=== PATIENT | female | born 1955 | race Caucasian/White ===

== ENCOUNTER 2018-07-16 19:04 | Emergency (ER) | payer OTHER, MEDICAID ==
[~2018-07-16] VITALS: Ht 172.7 cm; Wt 94.3 kg
[~2018-07-16 19:04] MED LIST: ATOR10TA52; GABA100C9 PO; METH500T6; OMEP20CA74; TIOTCAP
[2018-07-16 20:19] LABS: Basophils # (auto) 0.1 uL; Eosinophils # (auto) 0.1 uL; Lymphocytes # (auto) 3.2 uL; Nucleated Red Blood Cells % 0.1 %; White Blood Cell 8.2 10^3/uL (4.4-10.8)
[2018-07-16 20:21] LABS: Basophils % (auto) 0.9 % (0.0-2.0); Eosinophils % (auto) 1.1 % (0.0-7.0); Hematocrit 38.7 % (36.0-46.0); Hemoglobin 12.3 g/dL (12.2-16.2); Lymphocytes % (auto) 39.6 % (10.0-50.0); Mean Corpuscular Hemoglobin 23.9 pg (28.0-32.0); Mean Corpuscular Hgb Conc. 31.8 g/dL (32.0-36.0); Mean Corpuscular Volume 75.4 fL (80.0-100.0); Monocytes # (auto) 0.8 uL; Monocytes % (auto) 10.1 % (0.0-12.0); Neutrophils # (auto) 3.9 uL; Neutrophils % (auto) 48.3 % (37.0-80.0); Platelet Count (auto) 298 10^3/uL (140-450); Red Blood Cells 5.14 10^6/uL (4.0-5.20); Red Cell Distribution Width 19.9 % (11.8-14.3)
[2018-07-16 20:42] LABS: Albumin 3.7 g/dL (3.4-5.0); Calcium 8.9 mg/dL (8.5-10.1)
[2018-07-16 20:46] LABS: Bilirubin, Total 0.5 mg/dL (0.2-1.0); Total Protein 7.7 g/dL (6.4-8.2)
[2018-07-16 21:16] LABS: INR 1.37 (0.9-1.15); Prothrombin Time 13.6 sec (9.27-12.13)
[2018-07-16 21:17] LABS: Partial Thromboplastin Time 30.7 sec (23.78-33.04)
[2018-07-17 00:30] VITALS: BP 124/86
== END 2018-07-17 03:19 | disposition home or self-care (01) ==
LOC: ER 19:10
DX: M70.31 Other bursitis of elbow, right elbow (principal); I48.91 Unspecified atrial fibrillation; I50.9 Heart failure, unspecified; Z79.899 Other long term (current) drug therapy
CPT/HCPCS: 36415; 71046; 73200; 80053; 84550; 85025; 85610; 85730

== ENCOUNTER 2021-04-28 13:46 | Inpatient (IN) | payer OTHER, MEDICAID ==
[~2021-04-28] VITALS: Ht 172.7 cm; Wt 79.2 kg
[~2021-04-28 13:46] MED LIST changes: -ATOR10TA52; +ATOR10TA52 PO; +METH500T22; -METH500T6
[2021-04-28 16:09] LABS: Hematocrit 37.5 % (36.0-46.0); Hemoglobin 13.5 g/dL (12.2-16.2); Mean Corpuscular Hemoglobin 30.4 pg (28.0-32.0); Mean Corpuscular Hgb Conc. 35.9 g/dL (32.0-36.0); Mean Corpuscular Volume 84.5 fL (80.0-100.0); Red Blood Cells 4.44 10^6/uL (4.0-5.20); Red Cell Distribution Width 13.7 % (11.8-14.3); White Blood Cell 11.1 10^3/uL (4.4-10.8)
[2021-04-28 16:16] LABS: Basophils % (manual) 0 (0.0-2.0); Blast Cells 0; Metamyelocytes % 0; Myelocytes % 0; Promyelocytes % 0; Reactive Lymphocytes 0
[2021-04-28 16:33] LABS: Albumin 3.3 g/dL (3.4-5.0); BUN/Creatinine Ratio 18.6; Bilirubin, Total 0.5 mg/dL (0.2-1.0); Calcium 9.7 mg/dL (8.5-10.1); Total Protein 7.4 g/dL (6.4-8.2)
[2021-04-28 17:13] LABS: Band Neutrophils % (manual) 3; Eosinophils % (manual) 1 (0-7); Lymphocytes % (manual) 30 (10.0-50.0); Monocytes % (manual) 10 (0-12)
[2021-04-29] MEDS ORDERED: cefTRIAXone 1GM/50ML D5W 50 ML IV ONE (02:00)
[2021-04-29] MEDS ORDERED: metroNIDAZOLE 500MG/100ML 100 ML IV ONE (02:00)
[2021-04-29] MEDS: SODIUM CHLORIDE 0.9% 1,000 ML IV SCH ×2 (02:30→19:10)
[2021-04-29] MEDS ORDERED: ACETAMINOPHEN 325 MG TAB PO PRN (02:30)
[2021-04-29] MEDS ORDERED: ONDANSETRON HCL 4 MG/2 ML VIAL IV PRN (02:30)
[2021-04-29] MEDS: HYDROcodone-ACET 5/325MG TAB PO PRN ×3 (03:16→19:45)
[2021-04-29] MEDS ORDERED: NITROGLYCERIN 0.4 MG SL TAB SL PRN (03:30)
[2021-04-29 05:17] LABS: Hematocrit 37.5 % (36.0-46.0); Hemoglobin 12.9 g/dL (12.2-16.2); Mean Corpuscular Hemoglobin 29.3 pg (28.0-32.0); Mean Corpuscular Hgb Conc. 34.5 g/dL (32.0-36.0); Red Blood Cells 4.42 10^6/uL (4.0-5.20); Red Cell Distribution Width 13.9 % (11.8-14.3); White Blood Cell 6.8 10^3/uL (4.4-10.8)
[2021-04-29 05:21] LABS: Basophils % (manual) 0 (0.0-2.0); Blast Cells 0; Eosinophils % (manual) 0 (0-7); Metamyelocytes % 0; Promyelocytes % 0; Reactive Lymphocytes 0
[2021-04-29 05:31] LABS: Albumin 3.1 g/dL (3.4-5.0); Calcium 9.4 mg/dL (8.5-10.1); Potassium 3.5 mmol/L (3.5-5.1)
[2021-04-29 05:35] LABS: BUN/Creatinine Ratio 21.3; Bilirubin, Total 0.5 mg/dL (0.2-1.0); Total Protein 7.1 g/dL (6.4-8.2)
[2021-04-29 07:05] LABS: Band Neutrophils % (manual) 8; Lymphocytes % (manual) 34 (10.0-50.0); Monocytes % (manual) 4 (0-12); Myelocytes % 1
[2021-04-29] MEDS: ENOXAPARIN SOD 40 MG/0.4 ML SYRINGE SC SCH (10:00)
[2021-04-29] MEDS: FAMOTIDINE (10MG/ML) 2ML VL IV SCH (10:00)
[2021-04-29] MEDS ORDERED: levoFLOXacin 500MG 100 ML IV ONE (12:00)
[2021-04-29] MEDS ORDERED: PNEUMOCOCCAL VACC POLYS 25 MCG/0.5 ML VIAL IM ONE (12:15)
[2021-04-29] MEDS ORDERED: INFLUENZA QUAD 2021-2022 0.5 ML SYRG IM ONE (12:15)
[2021-04-29] MEDS ORDERED: HYDR-4798 PO (12:26)
[2021-04-29] MEDS ORDERED: DRON400T PO (12:26)
[2021-04-29] MEDS ORDERED: RIVA20TA PO (12:26)
[2021-04-29 13:00] VITALS: BP 136/69
[2021-04-29] MEDS: metroNIDAZOLE 500MG/100ML 100 ML IV SCH ×2 (14:00→22:50)
[2021-04-29 17:00] VITALS: BP 152/88
[2021-04-29 22:00] VITALS: BP 125/79
[2021-04-29] MEDS: DRONEDARONE HCL 400 MG TAB PO SCH (22:50)
[2021-04-30] MEDS: HYDROcodone-ACET 5/325MG TAB PO PRN ×4 (01:25→21:11)
[2021-04-30] MEDS: metroNIDAZOLE 500MG/100ML 100 ML IV SCH ×3 (05:41→22:10)
[2021-04-30 07:59] LABS: Basophils # (auto) 0 10 ^3/uL (0-0.2); Basophils % (auto) 0.7 % (0.0-2.0); Eosinophils # (auto) 0 10 ^3/uL (0-0.8); Eosinophils % (auto) 0.2 % (0.0-7.0); Hematocrit 40.3 % (36.0-46.0); Hemoglobin 13.7 g/dL (12.2-16.2); Lymphocytes # (auto) 1.9 10 ^3/uL (0.4-5.4); Lymphocytes % (auto) 27.3 % (10.0-50.0); Mean Corpuscular Hgb Conc. 33.9 g/dL (32.0-36.0); Mean Corpuscular Volume 85.4 fL (80.0-100.0); Monocytes # (auto) 0.6 10 ^3/uL (0-1.3); Monocytes % (auto) 8.5 % (0.0-12.0); Neutrophils # (auto) 4.4 10 ^3/uL (1.6-8.6); Neutrophils % (auto) 63.3 % (37.0-80.0); Nucleated Red Blood Cells % 0.6 %; Red Blood Cells 4.72 10^6/uL (4.0-5.20); Red Cell Distribution Width 13.6 % (11.8-14.3)
[2021-04-30 08:01] LABS: Potassium 3.4 mmol/L (3.5-5.1)
[2021-04-30 08:08] LABS: Albumin 3.3 g/dL (3.4-5.0); BUN/Creatinine Ratio 24.1; Bilirubin, Total 0.6 mg/dL (0.2-1.0); Calcium 9.8 mg/dL (8.5-10.1); Total Protein 7.3 g/dL (6.4-8.2)
[2021-04-30 09:00] VITALS: BP 139/89
[2021-04-30] MEDS: DRONEDARONE HCL 400 MG TAB PO SCH ×2 (09:33→22:10)
[2021-04-30] MEDS: FAMOTIDINE (10MG/ML) 2ML VL IV SCH (09:33)
[2021-04-30] MEDS: levoFLOXacin 500MG 100 ML IV SCH (09:33)
[2021-04-30] MEDS: MORPHINE SULFATE 4 MG/ML SYR/VIAL IV PRN ×2 (09:34→16:23)
[2021-04-30] MEDS: ENOXAPARIN SOD 40 MG/0.4 ML SYRINGE SC SCH (09:34)
[2021-04-30] MEDS: DOCUSATE SOD 100 MG CAP PO PRN (10:47)
[2021-04-30 11:05] LABS: Urine Bacteria NONE SEEN /hpf (None Seen); Urine Blood Negative /uL (Negative); Urine Mucus FEW (None Seen); Urine WBC 2 /hpf (0 - 5)
[2021-04-30] MEDS: SODIUM CHLORIDE 0.9% 1,000 ML IV SCH (11:50)
[2021-04-30 13:00] VITALS: BP 132/90
[2021-04-30] MEDS ORDERED: OMNIPAQUE ORAL SOLN 500ml 12mg/ml PO ONE (16:02)
[2021-04-30 17:00] VITALS: BP 129/86
[2021-04-30] MEDS ORDERED: IOHEXOL 300 MG/ML 100ML BOTTLE IJ ONE (17:50)
[2021-04-30 22:00] VITALS: BP 116/68
[2021-05-01] MEDS: HYDROcodone-ACET 5/325MG TAB PO PRN ×2 (02:25→23:37)
[2021-05-01 05:00] VITALS: BP 129/74
[2021-05-01] MEDS: SODIUM CHLORIDE 0.9% 1,000 ML IV SCH ×2 (05:40→21:10)
[2021-05-01] MEDS: metroNIDAZOLE 500MG/100ML 100 ML IV SCH ×3 (05:46→22:00)
[2021-05-01] MEDS: DOCUSATE SOD 100 MG CAP PO PRN (05:47)
[2021-05-01 06:00] VITALS: BP 136/89
[2021-05-01] MEDS: FAMOTIDINE (10MG/ML) 2ML VL IV SCH (09:59)
[2021-05-01] MEDS: levoFLOXacin 500MG 100 ML IV SCH (09:59)
[2021-05-01] MEDS: MORPHINE SULFATE 4 MG/ML SYR/VIAL IV PRN ×4 (09:59→23:40)
[2021-05-01] MEDS: DRONEDARONE HCL 400 MG TAB PO SCH ×2 (09:59→22:00)
[2021-05-01 13:00] VITALS: BP 131/80
[2021-05-01 16:00] VITALS: BP 134/81
[2021-05-01] MEDS: POLYETHYLENE GLYCOL 17 GM PWDR PO PRN (16:13)
[2021-05-01 22:00] VITALS: BP 136/76
[2021-05-02] MEDS: DOCUSATE SOD 100 MG CAP PO PRN (01:02)
[2021-05-02 05:00] VITALS: BP 122/83
[2021-05-02] MEDS: MORPHINE SULFATE 4 MG/ML SYR/VIAL IV PRN (06:11)
[2021-05-02] MEDS: metroNIDAZOLE 500MG/100ML 100 ML IV SCH ×3 (06:25→21:30)
[2021-05-02 08:26] LABS: INR 1.18 (0.9-1.15); Partial Thromboplastin Time 24.6 sec (23.6-33.0)
[2021-05-02] MEDS ORDERED: GADOTERATE MEG 10 MMOL/20ml INJ (0.5MMOL/ml) IV ONE (08:52)
[2021-05-02 09:53] LABS: Basophils # (auto) 0 10 ^3/uL (0-0.2); Basophils % (auto) 0.4 % (0.0-2.0); Eosinophils # (auto) 0 10 ^3/uL (0-0.8); Eosinophils % (auto) 0.3 % (0.0-7.0); Hematocrit 39.1 % (36.0-46.0); Hemoglobin 13.2 g/dL (12.2-16.2); Lymphocytes # (auto) 2.4 10 ^3/uL (0.4-5.4); Lymphocytes % (auto) 28.1 % (10.0-50.0); Mean Corpuscular Hemoglobin 28.8 pg (28.0-32.0); Mean Corpuscular Hgb Conc. 33.8 g/dL (32.0-36.0); Mean Corpuscular Volume 85.1 fL (80.0-100.0); Monocytes # (auto) 0.7 10 ^3/uL (0-1.3); Monocytes % (auto) 8.8 % (0.0-12.0); Neutrophils # (auto) 5.2 10 ^3/uL (1.6-8.6); Neutrophils % (auto) 62.4 % (37.0-80.0); Nucleated Red Blood Cells % 0.4 %; Red Cell Distribution Width 13.8 % (11.8-14.3); White Blood Cell 8.4 10^3/uL (4.4-10.8)
[2021-05-02] MEDS: POLYETHYLENE GLYCOL 17 GM PWDR PO PRN (11:25)
[2021-05-02] MEDS: HYDROcodone-ACET 5/325MG TAB PO PRN ×3 (11:25→20:16)
[2021-05-02] MEDS: FAMOTIDINE (10MG/ML) 2ML VL IV SCH (11:26)
[2021-05-02] MEDS: DRONEDARONE HCL 400 MG TAB PO SCH ×2 (11:32→21:31)
[2021-05-02 12:10] VITALS: BP 136/76
[2021-05-02] MEDS: levoFLOXacin 500MG 100 ML IV SCH (12:39)
[2021-05-02 14:00] VITALS: BP 136/72
[2021-05-02 22:00] VITALS: BP 129/88
[2021-05-03] MEDS: HYDROcodone-ACET 5/325MG TAB PO PRN ×3 (02:09→22:24)
[2021-05-03] MEDS: metroNIDAZOLE 500MG/100ML 100 ML IV SCH ×3 (05:32→22:25)
[2021-05-03 05:50] VITALS: BP 146/87
[2021-05-03] MEDS: SODIUM CHLORIDE 0.9% 1,000 ML IV SCH ×3 (06:30→23:10)
[2021-05-03] MEDS: MORPHINE SULFATE 4 MG/ML SYR/VIAL IV PRN ×2 (08:34→13:28)
[2021-05-03] MEDS: FAMOTIDINE (10MG/ML) 2ML VL IV SCH (08:58)
[2021-05-03] MEDS: DRONEDARONE HCL 400 MG TAB PO SCH ×2 (09:00→22:24)
[2021-05-03] MEDS: levoFLOXacin 500MG 100 ML IV SCH (09:00)
[2021-05-03 09:17] VITALS: BP 130/90
[2021-05-03 13:05] VITALS: BP 148/95
[2021-05-03] MEDS: POLYETHYLENE GLYCOL 17 GM PWDR PO PRN (13:30)
[2021-05-03] MEDS ORDERED: ETOMIDATE (2MG/ML) 20ML VIAL IV ONE (14:44)
[2021-05-03] MEDS ORDERED: ROCURONIUM 10MG/ML 10ML VIAL IV ONE (14:44)
[2021-05-03 17:06] VITALS: BP 137/91
[2021-05-03 22:00] VITALS: BP 136/90
[2021-05-03] MEDS: MIRTAZAPINE 30 MG TAB PO SCH (22:24)
[2021-05-04 05:15] VITALS: BP 147/95
[2021-05-04] MEDS: metroNIDAZOLE 500MG/100ML 100 ML IV SCH ×3 (05:35→21:49)
[2021-05-04 09:00] VITALS: BP 145/95
[2021-05-04] MEDS: levoFLOXacin 500MG 100 ML IV SCH (10:18)
[2021-05-04] MEDS: FAMOTIDINE (10MG/ML) 2ML VL IV SCH (10:18)
[2021-05-04] MEDS: DOCUSATE SOD 100 MG CAP PO PRN (10:18)
[2021-05-04] MEDS: DRONEDARONE HCL 400 MG TAB PO SCH ×2 (10:20→21:48)
[2021-05-04] MEDS: MORPHINE SULFATE 4 MG/ML SYR/VIAL IV PRN ×3 (10:47→18:56)
[2021-05-04] MEDS ORDERED: IOHEXOL 350 MG/ML 100ML IJ ONE (12:01)
[2021-05-04 13:00] VITALS: BP 152/97
[2021-05-04 17:00] VITALS: BP 141/93
[2021-05-04] MEDS: SODIUM CHLORIDE 0.9% 1,000 ML IV SCH ×2 (18:05→19:05)
[2021-05-04] MEDS: POLYETHYLENE GLYCOL 17 GM PWDR PO PRN (21:49)
[2021-05-04] MEDS: HYDROcodone-ACET 5/325MG TAB PO PRN (21:54)
[2021-05-04 22:00] VITALS: BP 116/71
[2021-05-04] MEDS: MIRTAZAPINE 30 MG TAB PO SCH (22:00)
[2021-05-05] VITALS (7 sets, daily range): BP systolic 121–151; BP diastolic 75–95
[2021-05-05] MEDS: MORPHINE SULFATE INJECTION 2 MG/ML SYRG IV PRN ×4 (00:49→20:42)
[2021-05-05] MEDS: metroNIDAZOLE 500MG/100ML 100 ML IV SCH ×3 (05:36→20:37)
[2021-05-05] MEDS: DRONEDARONE HCL 400 MG TAB PO SCH ×2 (10:36→20:40)
[2021-05-05] MEDS: levoFLOXacin 500MG 100 ML IV SCH (10:48)
[2021-05-05] MEDS: FAMOTIDINE (10MG/ML) 2ML VL IV SCH (10:49)
[2021-05-05] MEDS ORDERED: LIDOCAINE 2%HCL (LOCAL ANESTH.) INJ 20ML MDV ONE (11:38)
[2021-05-05] MEDS ORDERED: fentaNYL CITRATE 0 ML ONE (11:56)
[2021-05-05] MEDS ORDERED: MIDAZOLAM HCL 2MG/2ML 2ml VIAL (1mg/ml) ONE (11:57)
[2021-05-05] MEDS: LORazepam 2MG/ML-1ML VIAL IV PRN ×2 (14:33→20:43)
[2021-05-05] MEDS: MIRTAZAPINE 30 MG TAB PO SCH (20:39)
[2021-05-06] MEDS: MORPHINE SULFATE INJECTION 2 MG/ML SYRG IV PRN (03:21)
[2021-05-06 05:00] VITALS: BP 142/88
[2021-05-06] MEDS: metroNIDAZOLE 500MG/100ML 100 ML IV SCH (06:59)
[2021-05-06 09:00] VITALS: BP 134/91
[2021-05-06] MEDS ORDERED: MIRT-66 PO (09:54)
[2021-05-06] MEDS ORDERED: HYDR2TAB58 PO (09:54)
[2021-05-06] MEDS ORDERED: LEVO500T31 PO (09:54)
[2021-05-06] MEDS: FAMOTIDINE (10MG/ML) 2ML VL IV SCH (10:00)
[2021-05-06] MEDS: levoFLOXacin 500MG 100 ML IV SCH (10:00)
[2021-05-06 10:14] VITALS: BP 134/91
[2021-05-06] MEDS: DRONEDARONE HCL 400 MG TAB PO SCH (10:27)
== END 2021-05-06 12:23 | disposition home or self-care (01) | DRG 854 ==
LOC: EDBD 13:46 → ER 13:46 → OVERFLOW 04-29 03:17 → EAST 04-29 11:27
PROVIDERS: ADMIT Nurse Practitioner Family; ATTEND Family Medicine
PROC: 0PB53ZX Excision of Right Scapula, Percutaneous Approach, Diagnostic (ICD-10-PCS; principal; 2021-05-05)
DX: A41.9 Sepsis, unspecified organism (principal); E87.1 Hypo-osmolality and hyponatremia; R45.851 Suicidal ideations; C34.11 Malignant neoplasm of upper lobe, right bronchus or lung; C40.01 Malignant neoplasm of scapula and long bones of right upper limb; C79.51 Secondary malignant neoplasm of bone; K80.00 Calculus of gallbladder with acute cholecystitis without obstruction; R16.0 Hepatomegaly, not elsewhere classified; I48.0 Paroxysmal atrial fibrillation; E78.00 Pure hypercholesterolemia, unspecified; E78.5 Hyperlipidemia, unspecified; F12.90 Cannabis use, unspecified, uncomplicated; F17.210 Nicotine dependence, cigarettes, uncomplicated; F43.10 Post-traumatic stress disorder, unspecified; I25.10 Atherosclerotic heart disease of native coronary artery without angina pectoris; I50.9 Heart failure, unspecified; J43.9 Emphysema, unspecified; F41.8 Other specified anxiety disorders; K80.70 Calculus of gallbladder and bile duct without cholecystitis without obstruction; Z96.659 Presence of unspecified artificial knee joint; R74.8 Abnormal levels of other serum enzymes; Z20.822 Contact with and (suspected) exposure to COVID-19; Z79.01 Long term (current) use of anticoagulants; Z82.49 Family history of ischemic heart disease and other diseases of the circulatory system; Z85.41 Personal history of malignant neoplasm of cervix uteri; Z86.73 Personal history of transient ischemic attack (TIA), and cerebral infarction without residual deficits; Z90.711 Acquired absence of uterus with remaining cervical stump; Z88.0 Allergy status to penicillin
CPT/HCPCS: 10005; 36415; 71046; 71275; 74177; 74181; 74183; 76705; 77012; 78226; 80053; 81001; 82105; 82378; 83690; 84484; 85007; 85025; 85027; 85610; 85730; 86301; 86304; 87426; 93005; 94003; 96365; 96368; G0378; J0696; J1956; J2250; J3490

== ENCOUNTER 2021-05-19 00:21 | Emergency (ER) | payer OTHER, MEDICAID ==
[~2021-05-19] VITALS: Ht 175.3 cm; Wt 77.1 kg
[~2021-05-19 00:21] MED LIST changes: +DRON400T PO; -GABA100C9 PO; +HYDR-4798 PO; +HYDR2TAB58 PO; +LEVO500T31 PO; -METH500T22; +MIRT-66 PO; -OMEP20CA74; +RIVA20TA PO; -TIOTCAP
[2021-05-19 00:23] VITALS: BP 151/99
[2021-05-19] MEDS ORDERED: HYDROcodone-ACET 7.5/325MG TAB PO ONE ×2 (07:00)
== END 2021-05-19 12:08 | disposition home or self-care (01) ==
LOC: EDBD 00:21 → EDUNIT# 00:21 → ER 00:21
DX: J44.9 Chronic obstructive pulmonary disease, unspecified (principal); F17.210 Nicotine dependence, cigarettes, uncomplicated; Z76.0 Encounter for issue of repeat prescription; Z85.9 Personal history of malignant neoplasm, unspecified; Z88.0 Allergy status to penicillin
CPT/HCPCS: 93005; 99283; J7030

== ENCOUNTER 2021-05-31 09:10 | Emergency (ER) | payer OTHER, MEDICAID ==
[~2021-05-31] VITALS: Ht 175.3 cm; Wt 56.7 kg
[2021-05-31 10:11] LABS: Red Blood Cells 3.33 10^6/uL (4.0-5.20)
[2021-05-31 10:13] LABS: Hematocrit 28.4 % (36.0-46.0); Hemoglobin 9.9 g/dL (12.2-16.2); Mean Corpuscular Hemoglobin 29.7 pg (28.0-32.0); Mean Corpuscular Hgb Conc. 34.9 g/dL (32.0-36.0); Mean Corpuscular Volume 85.1 fL (80.0-100.0); Red Cell Distribution Width 15.6 % (11.8-14.3); White Blood Cell 6.6 10^3/uL (4.4-10.8)
[2021-05-31 10:21] LABS: Albumin 2.7 g/dL (3.4-5.0); Calcium 10.9 mg/dL (8.5-10.1); Potassium 3.4 mmol/L (3.5-5.1)
[2021-05-31 10:22] LABS: Basophils % (manual) 0 (0.0-2.0); Blast Cells 0; Myelocytes % 0; Promyelocytes % 0; Reactive Lymphocytes 0
[2021-05-31 10:26] LABS: BUN/Creatinine Ratio 27.7; Bilirubin, Total 0.5 mg/dL (0.2-1.0); Total Protein 6.6 g/dL (6.4-8.2)
[2021-05-31] MEDS ORDERED: POTASSIUM EFFERVESENT TAB 25 MEQ PO ONE (11:15)
[2021-05-31 12:06] LABS: Band Neutrophils % (manual) 14; Eosinophils % (manual) 1 (0-7); Lymphocytes % (manual) 42 (10.0-50.0); Metamyelocytes % 2; Monocytes % (manual) 6 (0-12)
[2021-05-31 19:09] VITALS: BP 136/72
== END 2021-05-31 19:11 | disposition home or self-care (01) ==
LOC: ER 09:10
DX: J44.1 Chronic obstructive pulmonary disease with (acute) exacerbation (principal); E87.6 Hypokalemia; C34.90 Malignant neoplasm of unspecified part of unspecified bronchus or lung; E46 Unspecified protein-calorie malnutrition; Z68.1 Body mass index [BMI] 19.9 or less, adult; I50.9 Heart failure, unspecified; I48.91 Unspecified atrial fibrillation; F17.210 Nicotine dependence, cigarettes, uncomplicated; Z20.822 Contact with and (suspected) exposure to COVID-19
CPT/HCPCS: 36415; 71045; 80053; 83880; 84484; 85007; 85025; 85027; 87426; 93005